=== PATIENT | male | born 1955 | race Caucasian/White ===

== ENCOUNTER 2024-02-01 16:46 | Emergency (ER) | payer MEDICARE ==
[~2024-02-01] VITALS: Ht 182.9 cm; Wt 100.0 kg
[2024-02-01 16:56] VITALS: BP 127/80; PULSE 102; RESP 16; TEMP 97.7; O2SAT 97
[2024-02-01 17:26] LABS: CLARITY URINE CLOUDY (CLEAR); COLOR URINE YELLOW (YELLOW); GLUCOSE URINE NEGATIVE (NEGATIVE); KETONES URINE NEGATIVE (NEGATIVE); LEUKOCYTE ESTERASE URINE 3+ (NEGATIVE); NITRITE URINE NEGATIVE (NEGATIVE); OCCULT BLOOD URINE 1+ (NEGATIVE); PH URINE 5.5 (4.5-8.0); PROTEIN URINE 1+ (NEGATIVE); SPECIFIC GRAVITY URINE 1.013 (1.005-1.030); UROBILINOGEN URINE 0.2 E.U./dL (0.2-1.0)
[2024-02-01 17:53] LABS: RBC URINE 0-2 /hpf (0-2); SQUAMOUS EPITHELIAL CELL URINE FEW /lpf (RARE/1+); WBC URINE TNTC /hpf (0-2)
[2024-02-01 17:54] LABS: BACTERIA URINE 1+
[2024-02-01 19:05] LABS: POTASSIUM 3.7 mEq/L (3.5-5.1)
[2024-02-01 19:06] LABS: BASOPHILS % 0.3 % (0.0-2.0); CALCIUM 9.7 mg/dL (8.7-10.4); EOSINOPHILS % 0.2 % (0.0-5.0); HEMOGLOBIN. 12.3 g/dL (14.0-18.0); LYMPHOCYTES % 6.3 % (20.0-50.0); MEAN CORPUSCULAR HGB CONC 33.3 g/dL (31.0-37.0); MEAN CORPUSCULAR VOLUME 93.1 fL (80.0-94.0); MEAN PLATELET VOLUME 8.7 fl (7.4-10.4); MONOCYTES % 6.9 % (2.0-8.0); NEUTROPHILS % 86.3 % (40.0-76.0); PLATELET 224 x1000/uL (130-400); RED BLOOD CELL COUNT 3.98 mill/uL (4.7-6.1); RED CELL DISTRIBUTION WIDTH 12.6 % (11.6-14.6); WHITE BLOOD COUNT 14.1 x1000/uL (4.5-11.0)
[2024-02-01 19:08] LABS: DIFFERENTIAL COMMENT 1
[2024-02-01 19:11] LABS: CREATININE 1.6 mg/dL (0.6-1.3)
[2024-02-01] MEDS ORDERED: CEFTRIAXONE SODIUM 1G VIAL IM ONE (20:00)
[2024-02-01] MEDS ORDERED: CIPR-263 MT (20:46)
== END 2024-02-01 20:51 | disposition left against medical advice (07) ==
LOC: ER 16:46
DX: T83.098A Other mechanical complication of other urinary catheter, initial encounter (principal); I10 Essential (primary) hypertension; X58.XXXA Exposure to other specified factors, initial encounter; Y93.89 Activity, other specified; Y92.89 Other specified places as the place of occurrence of the external cause; Y99.8 Other external cause status
CPT/HCPCS: 36415; 74176; 80048; 81003; 85025; 87077; 87186; 99284

== ENCOUNTER 2024-02-27 14:02 | Emergency (ER) | payer BC, MEDICAID ==
[~2024-02-27] VITALS: Ht 167.6 cm; Wt 90.7 kg
[~2024-02-27 14:02] MED LIST: CIPR-263 MT
[2024-02-27 14:06] VITALS: O2SAT 98
[2024-02-27 15:07] LABS: HEMATOCRIT. 22.8 % (42.0-52.0); HEMOGLOBIN. 7.5 g/dL (14.0-18.0); MEAN CORPUSCULAR HEMOGLOBIN 29.9 pg (28.0-32.0); MEAN CORPUSCULAR VOLUME 90.5 fL (80.0-94.0); MEAN PLATELET VOLUME 7.4 fl (7.4-10.4); PLATELET 418 x1000/uL (130-400); RED BLOOD CELL COUNT 2.51 mill/uL (4.7-6.1); RED CELL DISTRIBUTION WIDTH 13.7 % (11.6-14.6); WHITE BLOOD COUNT 17.7 x1000/uL (4.5-11.0)
[2024-02-27 15:08] LABS: DIFFERENTIAL COMMENT 1
[2024-02-27 15:16] LABS: CHLORIDE 98 mEq/L (98-107); POTASSIUM 3.6 mEq/L (3.5-5.1); SODIUM 131 mEq/L (136-145)
[2024-02-27 15:17] LABS: CARBON DIOXIDE 26 mEq/L (21-32); INR 1.2; PROTHROMBIN TIME 13.5 sec (9.6-11.0)
[2024-02-27] MEDS: IOHEXOL-350 100 ML BOTTLE ONE (15:17)
[2024-02-27 15:18] LABS: CALCIUM 8.7 mg/dL (8.7-10.4)
[2024-02-27 15:19] LABS: PLATELET ESTIMATE NORMAL
[2024-02-27 15:23] LABS: GLUCOSE 122 mg/dL (70-105); UREA NITROGEN BLOOD 42 mg/dL (9-23)
[2024-02-27 15:24] LABS: ALANINE AMINOTRANSFERASE 23 IU/L (10-49); ALBUMIN 3.7 g/dL (3.2-4.8); ASPARTATE AMINOTRANSFERASE 23 IU/L (<34)
[2024-02-27 15:25] LABS: BILIRUBIN DIRECT 0.3 mg/dL (<=3.0); BILIRUBIN TOTAL 0.7 mg/dL (0.1-1.0); PROTEIN TOTAL 7.3 g/dL (6.0-8.3)
[2024-02-27 15:43] LABS: CREATININE 3.2 mg/dL (0.6-1.3); TROPONIN I HIGH SENSITIVITY 344 ng/L (3.0-53)
[2024-02-27 15:44] LABS: ETHANOL BLOOD < 10 mg/dL (<10)
[2024-02-27] MEDS ORDERED: GUAIFENESIN 200MG/10ML SUGAR FREE UDC PO PRN (16:00)
[2024-02-27] MEDS ORDERED: PANTOPRAZOLE SODIUM 40 MG/VIAL IV SCH (16:00)
[2024-02-27] MEDS ORDERED: MAGNESIUM/ALUMINUM HYDROXIDE/SIMETHICONE 30ML UDC PO PRN (16:00)
[2024-02-27] MEDS ORDERED: DOCUSATE SODIUM 100MG CAPSULE PO PRN (16:00)
[2024-02-27] MEDS ORDERED: ONDANSETRON HCL 4MG/2ML INJ IV PRN (16:00)
[2024-02-27] MEDS ORDERED: CLONIDINE 0.1MG TABLET PO PRN (16:00)
[2024-02-27] MEDS ORDERED: ACETAMINOPHEN 325MG TABLET PO PRN ×2 (16:00)
[2024-02-27] MEDS ORDERED: IPRATROPIUM/ALBUTEROL 0.5-3(2.5)MG/3ML NEB HHN PRN (16:00)
[2024-02-27] MEDS ORDERED: HYDRALAZINE 20MG/ML VIAL IV PRN (16:30)
[2024-02-27 16:35] LABS: IRON 26 ug/dL (65-175)
[2024-02-27 16:37] LABS: PHOSPHORUS 5.1 mg/dL (2.5-4.9)
[2024-02-27 16:38] LABS: TOTAL IRON BINDING CAPACITY 349 ug/dl (250-425)
[2024-02-27 16:41] LABS: FOLIC ACID (FOLATE) SERUM 8.25 ng/mL (>5.38); VITAMIN B12 SERUM 469 pg/mL (211-911)
[2024-02-27 16:42] LABS: FERRITIN 834 ng/mL (22-322)
[2024-02-27] MEDS: ASPIRIN 325MG TABLET PO ONE (17:14)
[2024-02-27] MEDS: DEXT 5%/LACTATED RINGERS 1,000 ML IV SCH (17:15)
[2024-02-27] MEDS: ENOXAPARIN 80MG/0.8ML SYR SUBCUT ONE (17:15)
[2024-02-27] MEDS: MAGNESIUM 2 G PREMIX 50 ML IV ONE (17:15)
[2024-02-27 17:48] LABS: TROPONIN I HIGH SENSITIVITY 342 ng/L (3.0-53)
[2024-02-27] MEDS: PANTOPRAZOLE SODIUM 40 MG/VIAL IV SCH (18:11)
[2024-02-27] MEDS: PIPERACILLIN/TAZO 3.375G/50ML 50 ML IV SCH (18:11)
[2024-02-27 18:46] LABS: CLARITY URINE TURBID (CLEAR); COLOR URINE YELLOW (YELLOW); GLUCOSE URINE NEGATIVE (NEGATIVE); KETONES URINE NEGATIVE (NEGATIVE); LEUKOCYTE ESTERASE URINE 3+ (NEGATIVE); NITRITE URINE NEGATIVE (NEGATIVE); OCCULT BLOOD URINE 2+ (NEGATIVE); PROTEIN URINE 2+ (NEGATIVE); SPECIFIC GRAVITY URINE 1.015 (1.005-1.030); UROBILINOGEN URINE 0.2 E.U./dL (0.2-1.0)
[2024-02-27 18:55] LABS: BACTERIA URINE 2+; SQUAMOUS EPITHELIAL CELL URINE 2+ /lpf (RARE/1+); WBC URINE 15-25 /hpf (0-2)
[2024-02-27 20:07] VITALS: TEMP 36.66960
[2024-02-27] MEDS ORDERED: ATORVASTATIN CALCIUM 40MG TABLET PO SCH (21:00)
[2024-02-27 21:13] VITALS: BP 119/69; PULSE 94; RESP 29; O2SAT 96
[2024-02-27] MEDS ORDERED: PIPERACILLIN/TAZO 3.375G/50ML 50 ML IV SCH (22:00)
[2024-02-28] MEDS ORDERED: ASPIRIN 81MG TABLET PO SCH (09:00)
[2024-02-28] MEDS ORDERED: MULTIVITAMINS,THER W-MINERALS TABLET PO SCH (09:00)
[2024-02-28] MEDS ORDERED: FOLIC ACID 1MG TABLET PO SCH (09:00)
[2024-02-28] MEDS ORDERED: THIAMINE HCL 100MG TABLET PO SCH (09:00)
== END 2024-02-27 22:16 | disposition left against medical advice (07) ==
LOC: ER 14:02 → EDBEDREQ 15:55 → EDBEDREQSVC 15:55 → EDBEDREQTM 15:55 → ER 22:16
DX: R47.81 Slurred speech (principal); N17.9 Acute kidney failure, unspecified; N40.0 Benign prostatic hyperplasia without lower urinary tract symptoms; F17.210 Nicotine dependence, cigarettes, uncomplicated; I10 Essential (primary) hypertension; F15.10 Other stimulant abuse, uncomplicated; F12.10 Cannabis abuse, uncomplicated; D63.8 Anemia in other chronic diseases classified elsewhere; Z79.899 Other long term (current) drug therapy
CPT/HCPCS: 80076; 80048; 81003; 80320; 82607; 82728; 82746; 83880; 83540; 83550; 83605; 83690; 83735; 83930; 84100; 85025; 85044; 85610; 86850; 86900; 86901; 87040; 87086; 84484; 36415; 84145; 71045; 73562; 70496; 70498; 70450; 93005; 96367; 96365; 96372; 96375; 99291; 84153; Q9967; J1650; J3475; J2470; J2543; G0480

== ENCOUNTER 2024-06-06 23:49 | Emergency (ER) | payer OTHER, MEDICAID ==
[2024-06-07 00:07] VITALS: PULSE 108
[2024-06-07 01:42] VITALS: TEMP 98.1
[2024-06-07] MEDS: ACETAMINOPHEN 500MG TABLET PO ONE (01:42)
== END 2024-06-07 01:43 | disposition home or self-care (01) ==
LOC: ER 23:49
DX: M25.512 Pain in left shoulder (principal); M25.511 Pain in right shoulder; I10 Essential (primary) hypertension
CPT/HCPCS: 99282

== ENCOUNTER 2024-10-14 17:01 | Emergency (ER) | payer OTHER, MEDICAID ==
[~2024-10-14] VITALS: Ht 177.8 cm; Wt 69.0 kg
[2024-10-14 17:06] VITALS: O2SAT 95
[2024-10-14 18:12] VITALS: TEMP 36.9; O2SAT 94
[2024-10-14] MEDS ORDERED: BACITRACIN ZINC OINT UDPKT TOP ONE (18:30)
[2024-10-14] MEDS ORDERED: LIDOCAINE HCL/EPINEPHRINE 1%-EPI 1:100,000 20ML VIAL INFIL ONE (18:30)
[2024-10-14] MEDS ORDERED: SODIUM CHLORIDE 0.9% 1,000 ML IV ONE (18:45)
[2024-10-14] MEDS ORDERED: TETANUS, DIPHTHERIA, PERTUSSIS VAC/PF 0.5ML (>10YR OLD) IM ONE (18:45)
[2024-10-14 20:00] VITALS: BP 143/79; PULSE 74; RESP 21
[2024-10-14] MEDS: ONDANSETRON HCL 4MG/2ML INJ IV STA (20:00)
[2024-10-14] MEDS: MORPHINE SULFATE 4 MG/ML INJ (FOR IV/IM USE) IV STA (20:00)
[2024-10-14] MEDS ORDERED: IBUP-2028 MT (22:23)
== END 2024-10-14 23:10 | disposition home or self-care (01) ==
LOC: ER 17:01
DX: S92.002A Unspecified fracture of left calcaneus, initial encounter for closed fracture (principal); S01.112A Laceration without foreign body of left eyelid and periocular area, initial encounter; I10 Essential (primary) hypertension; W18.30XA Fall on same level, unspecified, initial encounter; Y93.89 Activity, other specified; Y92.89 Other specified places as the place of occurrence of the external cause; Y99.8 Other external cause status
CPT/HCPCS: 99285; 12052; 96374; 70450; 29515; 96375; 73590; 73610; 73630; J2004; J2405; J2270; J7030; A6449; 12013; A4606

== ENCOUNTER 2025-04-07 19:13 | Inpatient (IN) | payer MEDICARE, MEDICAID ==
[~2025-04-07] VITALS: Ht 182.9 cm; Wt 85.7 kg
[~2025-04-07 19:13] MED LIST changes: +IBUP-2028 MT
[2025-04-07 19:25] VITALS: O2SAT 100
[2025-04-07 20:48] LABS: BASOPHILS % 0.7 % (0.0-2.0); EOSINOPHILS % 0.9 % (0.0-5.0); HEMATOCRIT. 44.1 % (42.0-52.0); HEMOGLOBIN. 14.2 g/dL (14.0-18.0); LYMPHOCYTES % 24.7 % (20.0-50.0); MEAN PLATELET VOLUME 9.8 fl (7.4-10.4); MONOCYTES % 8.4 % (2.0-8.0); NEUTROPHILS % 65.3 % (40.0-76.0); PLATELET 180 x1000/uL (130-400); RED BLOOD CELL COUNT 4.65 mill/uL (4.7-6.1); RED CELL DISTRIBUTION WIDTH 15.1 % (11.6-14.6)
[2025-04-07 20:59] LABS: INR 1.7
[2025-04-07 21:09] LABS: UREA NITROGEN BLOOD 39 mg/dL (9-23)
[2025-04-07 21:10] LABS: ASPARTATE AMINOTRANSFERASE 221 IU/L (<34)
[2025-04-07 21:11] LABS: BILIRUBIN DIRECT 0.7 mg/dL (<=3.0); BILIRUBIN TOTAL 1.5 mg/dL (0.1-1.0); PROTEIN TOTAL 6.8 g/dL (6.0-8.3)
[2025-04-07 21:13] LABS: CREATININE 2.1 mg/dL (0.6-1.3)
[2025-04-07 21:16] LABS: TROPONIN I HIGH SENSITIVITY 67 ng/L (3.0-53)
[2025-04-07] MEDS: FUROSEMIDE 40MG/4ML VIAL IVP ONE (21:47)
[2025-04-07] MEDS ORDERED: ONDANSETRON HCL 4MG/2ML INJ IV PRN (22:45)
[2025-04-07] MEDS ORDERED: DEXTROSE 50% WATER 50ML SYRINGE IV PRN (22:45)
[2025-04-07] MEDS ORDERED: ACETAMINOPHEN 325MG TABLET PO PRN ×2 (22:45)
[2025-04-07] MEDS ORDERED: DOCUSATE SODIUM 100MG CAPSULE PO PRN (22:45)
[2025-04-07] MEDS ORDERED: MAGNESIUM/ALUMINUM HYDROXIDE/SIMETHICONE 30ML UDC PO PRN (22:45)
[2025-04-07] MEDS ORDERED: IPRATROPIUM/ALBUTEROL 0.5-3(2.5)MG/3ML NEB HHN PRN (22:45)
[2025-04-07] MEDS ORDERED: GUAIFENESIN 200MG/10ML SUGAR FREE UDC PO PRN (22:45)
[2025-04-07 23:49] VITALS: BP 150/117; PULSE 93; RESP 20; TEMP 36.696
[2025-04-07] MEDS: FUROSEMIDE 40MG/4ML VIAL IV SCH (23:51)
[2025-04-08] VITALS: BP 154/114; PULSE 93; RESP 20; TEMP 36.7; O2SAT 96
[2025-04-08] MEDS: MELATONIN 3MG TABLET PO SCH (01:49)
[2025-04-08] MEDS: CLONIDINE 0.1MG TABLET PO PRN (01:50)
[2025-04-08 04:00] VITALS: BP 157/107; PULSE 85; RESP 19; TEMP 36.6; O2SAT 98
[2025-04-08 04:19] LABS: CLARITY URINE CLEAR (CLEAR); COLOR URINE YELLOW (YELLOW); GLUCOSE URINE 1+ (NEGATIVE); KETONES URINE NEGATIVE (NEGATIVE); LEUKOCYTE ESTERASE URINE NEGATIVE (NEGATIVE); NITRITE URINE NEGATIVE (NEGATIVE); OCCULT BLOOD URINE NEGATIVE (NEGATIVE); PH URINE 6.0 (4.5-8.0); PROTEIN URINE NEGATIVE (NEGATIVE); SPECIFIC GRAVITY URINE 1.008 (1.005-1.030); UROBILINOGEN URINE 0.2 E.U./dL (0.2-1.0)
[2025-04-08 04:58] LABS: *AMPHETAMINES SCREEN URINE NEGATIVE (NEGATIVE); *BARBITURATES SCREEN URINE NEGATIVE (NEGATIVE); *BENZODIAZEPINES SCREEN URINE NEGATIVE (NEGATIVE); *COCAINE SCREEN URINE NEGATIVE (NEGATIVE); CANNABINOID URINE SCREEN NEGATIVE (NEGATIVE); ECSTASY MDMA SCREEN URINE NEGATIVE (NEGATIVE); METHADONE URINE SCREEN NEGATIVE (NEGATIVE); OPIATES URINE SCREEN NEGATIVE (NEGATIVE); PHENCYCLIDINE URINE SCREEN NEGATIVE (NEGATIVE)
[2025-04-08 05:33] LABS: RBC URINE NONE SEEN /hpf (0-2); WBC URINE 0-2 /hpf (0-2)
[2025-04-08 05:34] LABS: BACTERIA URINE NONE SEEN; SQUAMOUS EPITHELIAL CELL URINE NONE SEEN /lpf (RARE/1+)
[2025-04-08 07:24] LABS: TROPONIN I HIGH SENSITIVITY 64 ng/L (3.0-53)
[2025-04-08 07:25] LABS: CREATININE 2.0 mg/dL (0.6-1.3)
[2025-04-08 07:26] LABS: LDL CHOLESTEROL 105.0 mg/dL (5-100); TRIGLYCERIDE 71.0 mg/dL (0-150); UREA NITROGEN BLOOD 45.0 mg/dL (9-23)
[2025-04-08 07:28] LABS: T4 FREE 1.65 ng/dL (0.89-1.76)
[2025-04-08 07:39] LABS: BASOPHILS % 0.5 % (0.0-2.0); EOSINOPHILS % 0.4 % (0.0-5.0); HEMATOCRIT. 41.1 % (42.0-52.0); HEMOGLOBIN. 13.4 g/dL (14.0-18.0); LYMPHOCYTES % 21.5 % (20.0-50.0); MEAN PLATELET VOLUME 10.3 fl (7.4-10.4); MONOCYTES % 9.2 % (2.0-8.0); NEUTROPHILS % 68.4 % (40.0-76.0); PLATELET 177 x1000/uL (130-400); RED BLOOD CELL COUNT 4.36 mill/uL (4.7-6.1); RED CELL DISTRIBUTION WIDTH 14.6 % (11.6-14.6)
[2025-04-08 08:00] VITALS: BP 156/97; PULSE 86; RESP 20; TEMP 36.3; O2SAT 99
[2025-04-08] MEDS: PANTOPRAZOLE SODIUM 40 MG/VIAL IV SCH (09:21)
[2025-04-08] MEDS: ENOXAPARIN 40MG/0.4ML SYR SUBCUT SCH (09:27)
[2025-04-08] MEDS: EMPAGLIFLOZIN 10MG TABLET PO SCH (09:28)
[2025-04-08 12:00] VITALS: BP 144/94; PULSE 78; RESP 18; TEMP 36.1; O2SAT 98
[2025-04-08 16:00] VITALS: BP 140/98; PULSE 78; RESP 20; TEMP 36.7; O2SAT 100
== END 2025-04-08 17:34 | disposition left against medical advice (07) | DRG 280 ==
LOC: ER 19:13 → 7WST 21:29 → EDBEDREQ 21:40 → EDBEDREQTM 21:40 → ENRESERV 22:45 → 7WST 23:46
PROVIDERS: ADMIT Internal Medicine; ATTEND Internal Medicine
DX: I13.0 Hypertensive heart and chronic kidney disease with heart failure and stage 1 through stage 4 chronic kidney disease, or unspecified chronic kidney disease (principal); I50.23 Acute on chronic systolic (congestive) heart failure; I21.4 Non-ST elevation (NSTEMI) myocardial infarction; E87.20 Acidosis, unspecified; N17.9 Acute kidney failure, unspecified; N18.30 Chronic kidney disease, stage 3 unspecified; Z53.29 Procedure and treatment not carried out because of patient's decision for other reasons; R74.01 Elevation of levels of liver transaminase levels; E80.6 Other disorders of bilirubin metabolism; Z87.891 Personal history of nicotine dependence
CPT/HCPCS: 36415; 71045; 80048; 80061; 80076; 80305; 81003; 82550; 83735; 83880; 84439; 84443; 84484; 85025; 93005; 99291; J1650; J1938; J2470